=== PATIENT | female | born 1970 | race Caucasian/White ===

== ENCOUNTER 2017-04-13 13:46 | Emergency (ER) | payer MEDICAID, OTHER ==
[~2017-04-13] VITALS: Ht 175.3 cm; Wt 101.3 kg
[~2017-04-13 13:46] MED LIST: GUAI5SYR PO; LEVO175T5 PO; LEVO750T26 PO; MISO200T VG
[2017-04-13] MEDS ORDERED: FAMOTIDINE 20 MG TABLET ONE (14:14)
[2017-04-13] MEDS ORDERED: DIPHENHYDRAMINE 25 MG CAPSULE ONE (14:14)
[2017-04-13] MEDS ORDERED: DEXAMETHASONE 4 MG TABLET ONE (14:15)
[2017-04-13] MEDS ORDERED: DEXAMETHASONE 4 MG TABLET PO ONE (14:30)
[2017-04-13] MEDS ORDERED: DIPHENHYDRAMINE 25 MG CAPSULE PO ONE (14:30)
[2017-04-13] MEDS ORDERED: FAMOTIDINE 20 MG TABLET PO ONE (14:30)
[2017-04-13 15:11] VITALS: BP 124/70
== END 2017-04-13 15:13 | disposition home or self-care (01) ==
LOC: ED 14:43
DX: L23.6 Allergic contact dermatitis due to food in contact with the skin (principal)
CPT/HCPCS: 99284; Q0163

== ENCOUNTER 2017-07-14 15:24 | Inpatient (IN) | payer OTHER ==
[~2017-07-14] VITALS: Ht 170.2 cm; Wt 107.6 kg
[2017-07-14] MEDS ORDERED: ALBUTEROL/IPRATROPIUM 2.5MG/0.5MG, 3 ML ONE ×2 (16:19→17:56)
[2017-07-14] MEDS ORDERED: SODIUM CHLORIDE FLUSH 10ML SYR IVF ONE (16:30)
[2017-07-14] MEDS ORDERED: ALBUTEROL/IPRATROPIUM 2.5MG/0.5MG, 3 ML NPPB ONE ×2 (16:30→17:30)
[2017-07-14 16:43] LABS: HEMOGLOBIN 14.4 g/dL (11.7-16.4); WHITE BLOOD COUNT 10.9 x10^3/uL (3.4-10)
[2017-07-14 16:52] LABS: BLOOD UREA NITROGEN 16 mg/dL (7-18)
[2017-07-14 16:56] LABS: IS PT STATUS REG ER OR PRE ER? YES
[2017-07-14] MEDS ORDERED: CEFTRIAXONE PMX 1GM/50ML 50 ML IV ONE (20:30)
[2017-07-14] MEDS ORDERED: AZITHROMYCIN 500 MG in SODIUM CHLORIDE 0.9% 250 ML IV ONE (20:30)
[2017-07-14] MEDS: CEFTRIAXONE PMX 1GM/50ML 50 ML IVPB SCH (21:00)
[2017-07-14] MEDS ORDERED: PHARMACY MAY ADJ FOR RENAL FX MC PRN ×2 (21:00)
[2017-07-14] MEDS ORDERED: ALBUTEROL/IPRATROPIUM 2.5MG/0.5MG, 3 ML IPPB PRN (21:00)
[2017-07-14] MEDS: AZITHROMYCIN 500 MG in SODIUM CHLORIDE 0.9% 250 ML IV SCH (21:00)
[2017-07-14] MEDS ORDERED: ONDANSETRON 2MG/ML, 2ML IVPB PRN (21:00)
[2017-07-14] MEDS ORDERED: CEFTRIAXONE PMX 1GM/50ML 50 ML ONE (21:15)
[2017-07-14] MEDS: SODIUM CHLORIDE 0.9% 1,000 ML IV SCH (21:36)
[2017-07-14] MEDS ORDERED: ALBUTEROL/IPRATROPIUM 2.5MG/0.5MG, 3 ML NPPB PRN (22:00)
[2017-07-14] MEDS ORDERED: OMNIPAQUE 350 MG/ML, 100ML BOTTLE ONE (23:06)
[2017-07-15] MEDS ORDERED: ENOXAPARIN 40 MG/0.4 ML ONE (03:38)
[2017-07-15] MEDS: ENOXAPARIN 40 MG/0.4 ML SQ SCH ×2 (04:15→21:41)
[2017-07-15] MEDS ORDERED: ACETAMINOPHEN 325 MG TABLET ONE (04:17)
[2017-07-15] MEDS: ACETAMINOPHEN 325 MG TABLET PO PRN (04:18)
[2017-07-15 04:50] LABS: HEMATOCRIT 41.3 % (34.6-47.8); HEMOGLOBIN 13.5 g/dL (11.7-16.4); WHITE BLOOD COUNT 9.3 x10^3/uL (3.4-10)
[2017-07-15 04:58] LABS: BLOOD UREA NITROGEN 13 mg/dL (7-18)
[2017-07-15] MEDS ORDERED: ALBUTEROL/IPRATROPIUM 2.5MG/0.5MG, 3 ML ONE ×3 (05:57→15:09)
[2017-07-15] MEDS: ALBUTEROL/IPRATROPIUM 2.5MG/0.5MG, 3 ML NPPB SCH ×4 (06:23→18:47)
[2017-07-15] MEDS: SODIUM CHLORIDE 0.9% 1,000 ML IV SCH ×2 (07:00→20:48)
[2017-07-15] MEDS: LEVOTHYROXINE 175 MCG TABLET PO SCH (08:22)
[2017-07-15] MEDS ORDERED: methylPREDNISolone SOD SUCC 125 MG/2 ML ONE (12:47)
[2017-07-15] MEDS: methylPREDNISolone SOD SUCC 125 MG/2 ML IVPush SCH ×2 (12:52→21:41)
[2017-07-15 19:33] VITALS: BP 145/76
[2017-07-15] MEDS: CEFTRIAXONE PMX 1GM/50ML 50 ML IVPB SCH (20:48)
[2017-07-15] MEDS: AZITHROMYCIN 500 MG in SODIUM CHLORIDE 0.9% 250 ML IV SCH (21:41)
[2017-07-16] MEDS: ACETAMINOPHEN 325 MG TABLET PO PRN (01:07)
[2017-07-16 01:43] VITALS: BP 127/71
[2017-07-16] MEDS: methylPREDNISolone SOD SUCC 125 MG/2 ML IVPush SCH ×3 (05:30→22:05)
[2017-07-16] MEDS: SODIUM CHLORIDE 0.9% 1,000 ML IV SCH ×2 (06:31→15:08)
[2017-07-16] MEDS: ALBUTEROL/IPRATROPIUM 2.5MG/0.5MG, 3 ML NPPB SCH ×4 (07:10→19:14)
[2017-07-16] MEDS: LEVOTHYROXINE 175 MCG TABLET PO SCH (08:51)
[2017-07-16] MEDS ORDERED: PNEUMOCOCCAL 23 VACCINE IM-VACC ONE (10:30)
[2017-07-16] MEDS ORDERED: FLU VACC QS2017-18 (36MOS+) UP/PF 0.5 ML IM-VACC ONE (10:30)
[2017-07-16 10:36] LABS: HEMOGLOBIN 12.9 g/dL (11.7-16.4); WHITE BLOOD COUNT 14.1 x10^3/uL (3.4-10)
[2017-07-16 10:46] LABS: BLOOD UREA NITROGEN 14 mg/dL (7-18)
[2017-07-16 14:00] VITALS: BP 125/79
[2017-07-16 19:28] VITALS: BP 128/76
[2017-07-16] MEDS: AZITHROMYCIN 500 MG in SODIUM CHLORIDE 0.9% 250 ML IV SCH (22:05)
[2017-07-16] MEDS: ENOXAPARIN 40 MG/0.4 ML SQ SCH (22:05)
[2017-07-17 02:20] VITALS: BP 138/73
[2017-07-17] MEDS: SODIUM CHLORIDE 0.9% 1,000 ML IV SCH (04:09)
[2017-07-17] MEDS: methylPREDNISolone SOD SUCC 125 MG/2 ML IVPush SCH (05:18)
[2017-07-17] MEDS: ALBUTEROL/IPRATROPIUM 2.5MG/0.5MG, 3 ML NPPB SCH (07:00)
[2017-07-17 07:20] VITALS: BP 145/75
[2017-07-17] MEDS: LEVOTHYROXINE 175 MCG TABLET PO SCH (08:02)
[2017-07-17] MEDS ORDERED: ALBU8.5H8 PO (10:06)
[2017-07-17] MEDS ORDERED: METH4TAB2 PO (10:06)
[2017-07-17] MEDS ORDERED: AZIT250T89 PO (10:06)
[2017-07-17] MEDS ORDERED: ALBUTEROL/IPRATROPIUM 2.5MG/0.5MG, 3 ML NPPB SCH (16:00)
[2017-07-17] MEDS ORDERED: AZITHROMYCIN 250 MG TABLET PO SCH (22:00)
== END 2017-07-17 13:45 | disposition home or self-care (01) | DRG 193 ==
LOC: ED 17:44 → EDIP 20:26 → 3NE 07-15 18:14 → DCLOUNGE 07-17 13:00
PROVIDERS: ADMIT Internal Medicine; ATTEND Internal Medicine
DX: J18.1 Lobar pneumonia, unspecified organism (principal); J96.01 Acute respiratory failure with hypoxia; E03.9 Hypothyroidism, unspecified; E66.9 Obesity, unspecified; J40 Bronchitis, not specified as acute or chronic; Z87.01 Personal history of pneumonia (recurrent); Z68.37 Body mass index [BMI] 37.0-37.9, adult; E06.9 Thyroiditis, unspecified
CPT/HCPCS: 36415; 71010; 71275; 80048; 82040; 83605; 83880; 84484; 85025; 87040; 90732; 93005; 94640; 99285; J0456; J0696; J1650; J7620; Q9967; J2930; J7030; J7050; J7512

== ENCOUNTER 2018-03-30 06:45 | Emergency (ER) | payer SELFPAY ==
[~2018-03-30] VITALS: Ht 170.2 cm; Wt 98.2 kg
[~2018-03-30 06:45] MED LIST changes: +ALBU8.5H8 PO; +AZIT250T89 PO; +METH4TAB2 PO
[2018-03-30 08:39] VITALS: BP 118/71
[2018-03-30] MEDS ORDERED: AZITHROMYCIN 500 MG TABLET ONE (08:41)
[2018-03-30] MEDS ORDERED: CEFTRIAXONE 1,000 MG ONE (08:42)
[2018-03-30] MEDS ORDERED: CEFTRIAXONE 1,000 MG IM ONE (09:00)
[2018-03-30] MEDS ORDERED: AZITHROMYCIN 500 MG TABLET PO ONE (09:00)
== END 2018-03-30 08:59 | disposition home or self-care (01) ==
LOC: ED 08:21
DX: J18.0 Bronchopneumonia, unspecified organism (principal)
CPT/HCPCS: 71046; 93005; 96372; 99284; J0696